=== PATIENT | female | born 1975 | race Caucasian/White ===

== ENCOUNTER 2024-12-29 10:10 | Day surgery (SDC) | payer MEDICAID, SELFPAY ==
[2024-12-28 10:47] LABS: HCG Qualitative,Urine Negative
[2024-12-28 12:39] VITALS: BMI 47.5
[2024-12-29 11:11] VITALS: BP 164/98; PULSE 99; RESP 12; TEMP 36.7; O2SAT 94; BMI 47.0
[2024-12-29] MEDS: RINGERS LACTATED 500 ML 1,000 ML 20 ML IV (11:21)
[2024-12-29 12:54] VITALS: BP 132/84; PULSE 95; RESP 17; TEMP 36.6; O2SAT 96
--- NOTE | 2024-12-29 12:54 | SUR.PHASEII ---
1254: Pt. AAOx4, vitals stable, breathing unlabored, no complaint of pain or nausea, no dressing in place, no active bleed noted, report received from Alix JAVIER and Guille PACHECO.
[2024-12-29 12:59] VITALS: BP 134/83; PULSE 95; RESP 17; TEMP 36.6; O2SAT 98
[2024-12-29 13:04] VITALS: BP 124/86; PULSE 94; RESP 14; TEMP 36.6; O2SAT 97
[2024-12-29 13:09] VITALS: BP 144/93; PULSE 87; RESP 18; TEMP 36.5; O2SAT 100
[2024-12-29 13:24] VITALS: BP 118/78; PULSE 91; RESP 17; TEMP 36.5; O2SAT 98
--- NOTE | 2024-12-29 13:30 | SUR.PHASEII ---
1330: Pt. AAOx4, vitals stable, breathing unlabored, no complaint of pain or nausea, no dressing in place, no active bleed noted, pt. tolerated sips of soda well, pt. ambulated to wheelchair with steady gait and no assist, no complications. Gave discharge instructions to the pt. and her ride, both verbazlied understanding and had no further questions. Pt. left with all personal belongings.
== END 2024-12-29 13:30 | disposition home or self-care (01) ==
PROVIDERS: Anesthesiology; PCP Physician Assistant; Referring Provider Internal Medicine Gastroenterology; Visit Provider Internal Medicine Gastroenterology
PROC: (CPT 43239; principal; 2024-12-29 11:30)
PROC: 0DJD8ZZ Inspection of Lower Intestinal Tract, Via Natural or Artificial Opening Endoscopic (ICD-10-PCS; CPT 45378; 2024-12-29 11:30)
DX: K63.3 Ulcer of intestine (principal); K64.9 Unspecified hemorrhoids; K91.89 Other postprocedural complications and disorders of digestive system; K29.70 Gastritis, unspecified, without bleeding; K44.9 Diaphragmatic hernia without obstruction or gangrene; K29.50 Unspecified chronic gastritis without bleeding; K31.89 Other diseases of stomach and duodenum
CPT/HCPCS: 45380; 81025; A4217; J7120; A9270